=== PATIENT | female | born 2005 | race Caucasian/White ===

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

== ENCOUNTER 2024-05-20 07:43 | Emergency (ER) | payer BC, OTHER ==
[2024-05-20] MEDS: Sodium Chloride 0.9% 1,000 ML IV ONE (08:13)
[2024-05-20] MEDS: Morphine 4 MG/ML Syringe IVPUSH ONE (08:13)
[2024-05-20] MEDS: Ondansetron 4 MG/2 ML SDV IVPUSH ONE (08:13)
[2024-05-20 08:17] LABS: APPEARANCE,URINE CLEAR; BILIRUBIN,URINE NEGATIVE (NEGATIVE); COLOR,URINE YELLOW; GLUCOSE,URINE NEGATIVE (NEGATIVE); KETONES,URINE NEGATIVE (NEGATIVE); LEUKOCYTE ESTERASE,URINE NEGATIVE (NEGATIVE); NITRITE,URINE NEGATIVE (NEGATIVE); OCCULT BLOOD,URINE NEGATIVE (NEGATIVE); PROTEIN,URINE NEGATIVE (NEGATIVE); UROBILINOGEN,URINE 0.2 EU/dL (<2.0)
[2024-05-20 08:33] LABS: BASOPHILS ABSOLUTE AUTO 0.05 K/uL (0.00-0.30); BASOPHILS PERCENT AUTO 0.3 % (0.0-1.0); EOSINOPHILS ABSOLUTE AUTO 0.09 K/uL (0.00-0.70); EOSINOPHILS PERCENT AUTO 0.6 % (0.0-5.0); HEMATOCRIT 36.1 % (37.0-47.0); HEMOGLOBIN 12.5 g/dL (12.0-16.0); IMMATURE GRAN ABSOLUTE AUTO 0.05 K/uL (0.00-0.05); IMMATURE GRAN PERCENT AUTO 0.3 % (0.0-0.4); LYMPHOCYTES PERCENT AUTO 19.5 % (50.0-65.0); MEAN CORPUSCULAR HEMOGLOBIN 30.3 pg (28.0-32.0); MEAN CORPUSCULAR HGB CONC 34.6 g/dL (32.0-36.0); MEAN CORPUSCULAR VOLUME 87.4 fL (83.0-99.0); MEAN PLATELET VOLUME 9.7 fL (9.4-12.3); MONOCYTES ABSOLUTE AUTO 1.49 K/uL (0.10-1.40); MONOCYTES PERCENT AUTO 9.7 % (2.0-10.0); NEUTROPHILS ABSOLUTE AUTO 10.67 K/uL (1.50-8.50); NEUTROPHILS PERCENT AUTO 69.6 % (35.0-45.0); PLATELET COUNT,PLT 357 K/uL (150-400); RED BLOOD CELL COUNT 4.13 M/uL (4.10-5.30); WHITE BLOOD CELL COUNT,WBC 15.35 K/uL (4.5-13.5)
[2024-05-20 08:58] LABS: A/G RATIO 1.2 (0.9-1.6); ALBUMIN 3.8 g/dL (3.4-5.0); BILIRUBIN TOTAL 0.7 mg/dL (0.2-1.0); C-REACTIVE PROTEIN 0.75 mg/dL (<0.3); CALCIUM 8.8 mg/dL (8.5-10.1); CARBON DIOXIDE,CO2 24.6 mmol/L (21.0-32.0); CREATININE 0.8 mg/dL (0.6-1.0); EST CRCL DRUG DOSING (CG) 105.89 mL/min; POTASSIUM,K 3.6 mmol/L (3.5-5.1); PROTEIN TOTAL,TP 6.9 g/dL (6.4-8.2)
[2024-05-20] MEDS: Iopamidol 755 MG/ML 500 ML Multipack Bottle IVPUSH STA (09:30)
[2024-05-20] MEDS: Ketorolac 30 MG/ML SDV IVPUSH ONE (10:51)
[2024-05-20] MEDS: Sodium Chloride 0.9% 10 ML Syringe FLUSH PRN (10:57)
[2024-05-20] MEDS: Acetaminophen 500 MG Tab PO ONE (10:57)
== END 2024-05-20 12:18 | disposition home or self-care (01) ==
LOC: MW.ED 07:43
DX: N83.201 Unspecified ovarian cyst, right side (principal)
CPT/HCPCS: 36415; 74177; 76856; 80053; 81003; 81025; 85018; 85025; 85652; 86140; 96361; 96374; 96375; 99284; A9270; J1885; J2270; J2405; J3490; J7030; Q9967